=== PATIENT | female | born 1945 | race Caucasian/White ===

== ENCOUNTER 2017-08-18 19:34 | Emergency (ER) | payer MEDICARE ==
[~2017-08-18] VITALS: Ht 167.6 cm; Wt 53.1 kg
[2017-08-18] MEDS ORDERED: LORA-258 (20:39)
[2017-08-18] MEDS ORDERED: GUAI100L66 (20:39)
[2017-08-18] MEDS ORDERED: CARB200C4 (20:39)
[2017-08-18] MEDS ORDERED: RISP0.5T5 (20:39)
[2017-08-18] MEDS ORDERED: ACET-2154 (20:39)
[2017-08-18] MEDS ORDERED: MAGN400O6 (20:39)
[2017-08-18] MEDS ORDERED: METO-356 (20:39)
[2017-08-18] MEDS ORDERED: LOSA50TA21 (20:39)
[2017-08-18] MEDS ORDERED: TRAZ-144 (20:39)
[2017-08-18] MEDS ORDERED: CHOL40002 (20:39)
[2017-08-18] MEDS ORDERED: LOPE2CAP40 (20:39)
[2017-08-18] MEDS ORDERED: CYAN100T (20:39)
[2017-08-18] MEDS ORDERED: LEVO100T (20:39)
[2017-08-18] MEDS ORDERED: APIX5TAB (20:40)
[2017-08-18 21:52] LABS: *BILIRUBIN,URIN NEGATIVE (NEGATIVE); *BLOOD, URINE NEGATIVE (NEGATIVE); *COLOR,URINE YELLOW (YELLOW); *KETONES,URINE NEGATIVE (NEGATIVE); *PROTEIN,URINE NEGATIVE (NEGATIVE); *UROBILINOGEN,URINE 0.2 E.U./dl (NORMAL); LEUKOCYTE ESTERASE ,URINE 1+ (NEGATIVE); NITRITE, URINE NEGATIVE (NEGATIVE); UGLUCOSE NEGATIVE (NEGATIVE)
--- NOTE | 2017-08-18 21:56 | NUR ---
Daughter at bedside.
[2017-08-18 22:01] LABS: *CLARITY,URINE SLIGHTLY HAZY (CLEAR)
[2017-08-18 22:02] LABS: MUCUS,URINE FEW /LPF (0-FEW); RBC,URINE 0-3 /HPF (0-3); SQUAMOUS EPITHELIAL CELL,UR FEW /HPF (NONE SEEN)
[2017-08-18] MEDS ORDERED: SULFAMETH/TRIMETH 800/160 MG TABLET ONE (22:14)
[2017-08-18] MEDS ORDERED: SULFAMETH/TRIMETH 800/160 MG TABLET PO ONE (22:15)
[2017-08-18 22:28] VITALS: BP 130/70
--- NOTE | 2017-08-18 22:29 | NUR ---
Patient discharged to home in stable conditon. Written and verbal after care instructions given. Patient verbalizes understanding of instructions. Pt ambulated out of ER with stable gait, all belongings taken, pt to be driven by daughter via private vehicle.
== END 2017-08-18 22:30 | disposition home or self-care (01) ==
LOC: ER 19:34
DX: N39.0 Urinary tract infection, site not specified (principal); E03.9 Hypothyroidism, unspecified; G47.00 Insomnia, unspecified; I10 Essential (primary) hypertension; F31.9 Bipolar disorder, unspecified; Z79.01 Long term (current) use of anticoagulants
CPT/HCPCS: A4663